=== PATIENT | female | born 1935 | race Hispanic/Latino ===

== ENCOUNTER 2017-08-16 03:42 | Emergency (ER) | payer OTHER, MEDICARE ==
[2017-08-16] MEDS ORDERED: PROCHLORPERAZINE EDISYLATE 10 MG/2 ML VIAL ONE (03:52)
[2017-08-16] MEDS ORDERED: SODIUM CHLORIDE 0.9% 1000ML 1,000 ML IV ONE (03:52)
[2017-08-16 04:10] LABS: BASOPHILS % (AUTO) 0.8 % (0.0-5.0); HEMATOCRIT 39.2 % (36-48); LYMPHOCYTES % (AUTO) 21.9 % (21.0-51.0); MEAN CORPUSCULAR HEMOGLOBIN 31.8 pg (27.0-33.0); MEAN CORPUSCULAR HGB CONC 34.6 g/dL (32.0-36.0); MONOCYTES % (AUTO) 6.7 % (3.0-13.0); NEUTROPHILS % (AUTO) 67.6 % (40.0-77.0); PLATELET COUNT (AUTO) 242 K/uL (130-400); RED BLOOD CELL COUNT(AUTO) 4.26 MIL/uL (4.00-5.50); RED CELL DISTRIBUTION WIDTH 13.3 % (11.0-15.5); WHITE BLOOD COUNT (AUTO) 8.1 K/uL (4.8-10.8)
[2017-08-16 04:20] LABS: CREATININE 0.9 mg/dL (0.5-1.5); POTASSIUM 3.6 mmol/L (3.5-5.1)
== END 2017-08-16 06:04 | disposition home or self-care (01) ==
LOC: EDH 03:42
DX: R42 Dizziness and giddiness (principal); R51 Headache; K21.9 Gastro-esophageal reflux disease without esophagitis
CPT/HCPCS: 36415; 70450; 80048; 84484; 85025; 93005; 96361; 96374; 99285; J0780; J7030

== ENCOUNTER 2018-05-04 10:18 | Emergency (ER) | payer OTHER, MEDICARE ==
[2018-05-04] MEDS ORDERED: ONDANSETRON HCL 4 MG/2 ML VIAL ONE (10:57)
[2018-05-04] MEDS ORDERED: MECLIZINE HCL 25 MG TABLET ONE ×2 (10:57→12:08)
[2018-05-04 11:01] LABS: APPEARANCE,URINE CLEAR (CLEAR); BILIRUBIN,URINE NEGATIVE (NEGATIVE); COLOR,URINE YELLOW (YELLOW); GLUCOSE, URINE (UA) NEGATIVE (NEGATIVE); KETONES,URINE NEGATIVE (NEGATIVE); LEUKOCYTE ESTERASE ,URINE TRACE (NEGATIVE); NITRATE,URINE NEGATIVE (NEGATIVE); OCCULT BLOOD,URINE NEGATIVE (NEGATIVE); PROTEIN,URINE NEGATIVE (NEGATIVE); UROBILINOGEN,URINE 0.2 mg/dL (0.2-1.0)
[2018-05-04 11:02] LABS: EOSINOPHILS % (AUTO) 1.5 % (0.0-8.0); LYMPHOCYTES % (AUTO) 15.5 % (21.0-51.0); MEAN CORPUSCULAR HEMOGLOBIN 30.6 pg (27.0-33.0); MEAN CORPUSCULAR HGB CONC 32.9 g/dL (32.0-36.0); MEAN CORPUSCULAR VOLUME 93.1 fL (79-99); MONOCYTES % (AUTO) 5.6 % (3.0-13.0); NEUTROPHILS % (AUTO) 76.4 % (40.0-77.0); PLATELET COUNT (AUTO) 212 K/uL (130-400); RED CELL DISTRIBUTION WIDTH 13.4 % (11.0-15.5)
[2018-05-04 11:10] LABS: BACTERIA,URINE None Seen /HPF (None Seen); RBC,URINE None Seen /HPF (0-1); SQUAMOUS EPITHELIAL CELL,UR Few /HPF (0-2); WBC,URINE 0-1 /HPF (0-1)
[2018-05-04 11:16] LABS: CREATININE 0.9 mg/dL (0.5-1.5)
[2018-05-04 11:19] LABS: INR 0.99 (0.85-1.15); PARTIAL THROMBOPLASTIN TIME 26.6 SEC (26.3-35.5); PROTHROMBIN TIME 10.4 SEC (9.6-11.6)
[2018-05-04 11:27] LABS: ALBUMIN 3.9 g/dL (3.5-5.0); BILIRUBIN,TOTAL 0.4 mg/dL (0.2-1.0); TOTAL PROTEIN, SERUM 7.4 g/dL (6.0-8.3)
== END 2018-05-04 13:54 | disposition home or self-care (01) ==
LOC: EDH 10:18
DX: H81.10 Benign paroxysmal vertigo, unspecified ear (principal); I10 Essential (primary) hypertension; K21.9 Gastro-esophageal reflux disease without esophagitis
CPT/HCPCS: 36415; 80053; 81001; 82550; 83874; 84484; 85025; 85610; 85730; 93005; 94761; 96374; 99285; J2405

== ENCOUNTER 2025-01-23 14:17 | Emergency (ER) | payer MEDICARE, OTHER ==
[~2025-01-23] VITALS: Ht 160 cm; Wt 53.1 kg
[~2025-01-23 14:17] MED LIST: DEXA6TAB7 PO; LEVO250S9 PO
[2025-01-23 16:04] LABS: IMMATURE GRANULOCYTE ABSOLUTE 0.06 K/uL (0-1); NUCLEATED RED BLOOD CELLS 0.0 % (0.0-0.19); PLATELET COUNT (AUTO) 373 K/uL (130-400); RED BLOOD CELL COUNT(AUTO) 4.12 MIL/uL (4.00-5.50); RED CELL DISTRIBUTION WIDTH 15.5 % (11.0-15.5); WHITE BLOOD COUNT (AUTO) 13.9 K/uL (4.8-10.8)
[2025-01-23 16:21] LABS: CREATININE 0.6 mg/dL (0.5-1.0); GLOMERULAR FILTR. RATE CALC 86.0 mL/min (>90); GLUCOSE,RANDOM 92.0 mg/dL (70-105); SODIUM SERUM 142.0 mmol/L (136-145); UREA NITROGEN, BLOOD 7.0 mg/dL (7-18)
--- NOTE | 2025-01-23 16:22 | HMCIMG ---
EXAM: CR Chest, 1 View. CLINICAL HISTORY: [facility] COMPARISON: None provided. FINDINGS: LUNGS: There is no mass, infiltrate, or acute pulmonary abnormality. PLEURAL SPACES: No pleural effusion or pneumothorax. MEDIASTINUM: The heart is mild to moderately enlarged. Moderate aortic arch calcific atherosclerosis. The mediastinal and hilar contours are unremarkable. BONES: No aggressive appearing osseous lesion seen. IMPRESSION: 1. No acute cardiopulmonary findings. 2. Mild to moderate cardiomegaly. 3. Moderate aortic arch atherosclerosis. /[place]
[2025-01-23 16:30] LABS: ASPARTATE AMINOTRANSFERASE 11.0 U/L (10-37); CREATINE KINASE, TOTAL 30.0 U/L (21-232); TOTAL PROTEIN, SERUM 7.0 g/dL (6.0-8.3)
[2025-01-23 16:45] VITALS: TEMP 97.9
[2025-01-23] MEDS: 0.9% NACL 500ML IV.SOLN 500 ML IV ONE (17:20)
--- NOTE | 2025-01-23 17:28 | HMCIMG ---
EXAM: CT Head Without IV contrast. CLINICAL HISTORY: gbw TECHNIQUE: Axial computed tomography images of the head/brain without intravenous contrast. COMPARISON: CT Head without contrast 08/15/2017 FINDINGS: BRAIN: No evidence of acute hemorrhage. No mass lesion. No CT evidence for acute territorial infarct. No midline shift or extra-axial collections. There is global atrophy and compensatory enlargement of the ventricles. Mild periventricular white matter abnormal hypoattenuation. Calcific atherosclerosis of the cavernous portions of the bilateral internal carotid arteries and distal vertebral arteries. VENTRICLES: No hydrocephalus. ORBITS: The orbits are unremarkable. SINUSES AND MASTOIDS: The paranasal sinuses and mastoid air cells are clear. BONES: No fracture. SOFT TISSUES: Unremarkable. IMPRESSION: 1. No acute intracranial findings. If there is high clinical concern for an acute ischemic cerebrovascular accident recommend MRI brain for further evaluation 2. Global atrophy with compensatory ventricular enlargement. Worsening compared with the prior exam 3. Chronic periventricular white matter changes. 4. Intracranial atherosclerosis. /[place]
[2025-01-23 18:40] LABS: APPEARANCE,URINE CLEAR (CLEAR); GLUCOSE, URINE (UA) NEGATIVE (NEGATIVE); LEUKOCYTE ESTERASE ,URINE 25 Leu/uL (NEGATIVE); NITRATE,URINE NEGATIVE (NEGATIVE); OCCULT BLOOD,URINE +- (TRACE) (NEGATIVE)
[2025-01-23 18:49] LABS: ADD UA MICROSCOPIC YES
--- NOTE | 2025-01-23 18:50 | ERN ---
ED Note History of Present Illness Stated Complaint: WEAKNESS Chief Complaint: Weakness Time Seen by MD: 14:36 Dictation: 89-year-old female presenting to the emergency department with generalized weakness and dizziness over the past few hours. Patient denies any chest pain shortness of breath or abdominal pain. 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 Past Medical History Past Medical History: Unable to Obtain Surgical History: Unknown Family History: DM, HTN Review of System Dictation Constitutional: Negative for fever,chills, and weight loss Eyes: Negative for injury, pain,redness, and discharge ENT: Negative for injury,pain or swelling Cardiovascular: Negative for chest pain, palpitations, and edema Respiratory: Negative for shortness of breath, cough, and wheezing, Abdomen/GI: Negative for abdominal pain, nausea, vomiting, diarrhea, and constipation Back: Negative for injury and pain : Negative for injury, bleeding and discharge MS/Extremity: Negative for injury and deformity Skin: Negative for rash, and discoloration Neuro: Per HPI Initial Vital Sign VS Vital Signs Date Time Temp Pulse Resp B/P (MAP) Pulse Ox O2 Delivery O2 Flow Rate FiO2 01/23/25 14:47 97 20 150/76 97 01/23/25 14:50 97.9 Room Air* 0 21 Physical Exam Dictation General: awake, alert, NAD Head/Face: Normocephalic, atraumatic Eyes: PERRL, EOMI, vision at baseline ENT: oral cavity clear, TMs clear, no signs of infection Neck: Trachea midline, supple, no nuchal rigidity Cardiovascular: RRR, normal S1/S2, No MRGs, no JVD Respiratory: CTAB, no respiratory distress, No rales or wheezes Abdomen: Soft, non-tender, non-distended, normal bowel sounds, no guarding or rebound. Skin: Warm, dry, normal turgor, no rash MS/Extremity: Pulses equal, no cyanosis, neurovascular intact, FROM Neuro: COAx4, GCS 15, strength 5/5, CN 2-12 intact, normal cerebellar exam, normal gait, Psych: Normal behavior, mood, and affect normal Results (Laboratory/Radiology) Laboratory/Radiology Laboratory Tests Test 01/23/25 15:39 01/23/25 18:25 White Blood Count 13.9 K/uL (4.8-10.8) H Red Blood Count 4.12 MIL/uL (4.00-5.50) Hemoglobin 11.3 g/dL (12.0-16.0) L Hematocrit 36.1 % (36-48) Mean Corpuscular Volume 87.6 fL (79-99) Mean Corpuscular Hemoglobin 27.4 pg (27.0-33.0) Mean Corpuscular Hemoglobin Concent 31.3 g/dL (32.0-36.0) L Red Cell Distribution Width 15.5 % (11.0-15.5) Platelet Count 373 K/uL (130-400) Mean Platelet Volume 9.6 fL (7.5-10.5) Immature Granulocyte % (Auto) 0.4 % (0-1) Neutrophils (%) (Auto) 80.8 % (40.0-77.0) H Lymphocytes (%) (Auto) 12.7 % (21.0-51.0) L Monocytes (%) (Auto) 5.0 % (3.0-13.0) Eosinophils (%) (Auto) 0.5 % (0.0-8.0) Basophils (%) (Auto) 0.6 % (0.0-5.0) Neutrophils # (Auto) 11.2 K/uL (1.8-7.7) H Lymphocytes # (Auto) 1.8 K/uL (1.0-4.8) Monocytes # (Auto) 0.7 K/uL (0.1-1.0) Eosinophils # (Auto) 0.07 K/uL (0.00-0.70) Basophils # (Auto) 0.08 K/uL (0.00-0.20) Absolute Immature Granulocyte (auto 0.06 K/uL (0-1) Nucleated Red Blood Cells 0.0 % (0.0-0.19) Sodium Level 142 mmol/L (136-145) Potassium Level 4.1 mmol/L (3.5-5.1) Chloride Level 104 mmol/L (101-111) Carbon Dioxide Level 32 mmol/L (21-32) Blood Urea Nitrogen 7 mg/dL (7-18) Creatinine 0.6 mg/dL (0.5-1.0) Glomerular Filtration Rate Calc 86 mL/min (>90) Random Glucose 92 mg/dL (70-105) Lactic Acid Level 1.4 mmol/L (0.8-2.5) Total Calcium 8.7 mg/dL (8.5-10.1) Total Bilirubin 0.5 mg/dL (0.2-1.0) Direct Bilirubin 0.2 mg/dL (0.0-0.3) Aspartate Amino Transf (AST/SGOT) 11 U/L (10-37) Alanine Aminotransferase (ALT/SGPT) 12 U/L (12-78) Alkaline Phosphatase 92 U/L (50-136) Total Creatine Kinase 30 U/L (21-232) # Troponin I High Sensitivity 29 ng/L (4-50) Total Protein 7.0 g/dL (6.0-8.3) Albumin 3.1 g/dL (3.5-5.0) L Urine Color COLORLESS (YELLOW) Urine Appearance CLEAR (CLEAR) Urine pH 7.5 (5.0-8.0) Urine Specific [place] 1.004 (1.001-1.031) Urine Protein NEGATIVE mg/dL (NEGATIVE) Urine Glucose (UA) NEGATIVE mg/dL (NEGATIVE) Urine Ketones NEGATIVE mg/dL (NEGATIVE) Urine Occult Blood +- (TRACE) (NEGATIVE) H Urine Nitrate NEGATIVE (NEGATIVE) Urine Bilirubin NEGATIVE mg/dL (NEGATIVE) Urine Urobilinogen 0.2 mg/dL (0.2-1.0) Urine Leukocyte Esterase 25 Mich[place]/uL (NEGATIVE) H Labs Reviewed?: Yes EKG: (+) NSR, (+) rhythm, (+) QRS, (+) nonspecific ST T wave chg ED Course ED Course Orders Procedure Category Date Status Time 12 Lead Ekg Tracing- EKG 01/23/25 Logged Technical 14:52 12 Lead Ekg Tracing- EKG 01/23/25 Logged Technical 14:55 Basic Metabolic Panel LAB 01/23/25 Complete 14:55 Blood Cult PHILLIP 01/23/25 In Process 14:55 Hepatic Function Panel LAB 8/8/25 Complete 14:55 Creatine Kinase, Total LAB 01/23/25 Complete 14:55 Cbc With Differential LAB 01/23/25 Complete 14:55 Lactic Acid LAB 01/23/25 Complete 14:55 Troponin I High LAB 01/23/25 Complete Sensitivity 14:55 Urinalysis Profile LAB 01/23/25 In Process 14:55 Chest 1vw RAD 01/23/25 Resulted 14:55 Ct Head/Brain W/O CT 01/23/25 Resulted Contrast 15:36 0.9% Nacl 500ml PHA 01/23/25 Complete Iv.Soln (Ns 500ml 16:00 Current Medications Medications (Trade) Dose Ordered Sig/Miguel[place] Route PRN Reason Start Time Stop Time Status Last Admin Dose Admin Sodium Chloride 500 ml @ 0 mls/hr ONCE ONCE IV 01/23/25 16:00 01/23/25 16:01 DC 01/23/25 17:20 Vital Signs Date Time Temp Pulse Resp B/P (MAP) Pulse Ox O2 Delivery O2 Flow Rate FiO2 01/23/25 16:45 97.9 83 20 161/91 99 Room Air* 0 21 01/23/25 14:50 97.9 97 20 156/78 99 Room Air* 0 21 01/23/25 14:47 97 20 150/76 97 Medical Decision Making MDM MDM: Differential diagnosis: Rationale: Tests considered and ordered secondary to shared decision making include: Previous outside records reviewed: Old ER visits. Risk of complication and/or morbidity or mortality of patient management: None Medications-Per medication reconciliation Need for hospitalization: Patient does not meet criteria for hospitalization. Need for emergency major/minor surgery: No There are no social concerns with this patient. Prescription drug management Prescriptions will include symptomatic care Patient's prior external medical records from other ER visits were reviewed by me as indicated. Prior testing and results from previous visits were reviewed. Prior tests were taken into account with medical decision making and resource utilization, independent historian/historians were used to obtain complete medical history. I independently interpreted the test that were performed, results were reviewed by me and considered findings on radiology if ordered. Medical management and examination interpretation discussions were had by me with other qualified healthcare professionals as indicated for the patient's care. 89-year-old female generalized weakness, stable exam negative cardiac workup and CT of the head, mild UTI, pt offered admission but wants to go home instead, Rx given DX & DISP Disposition: Discharge Departure Impression: Primary Impression: Weakness Additional Impression: UTI (urinary tract infection) Condition: Stable Scripts Cephalexin Monohydrate (Keflex) 500 Mg Cap 1 CAP PO BID for 5 Days, #10 CAP 0 Refills Prov: PATRIZIA GERMAIN MD 01/23/25 Referrals: BLANCHE BERNARDO MD (PCP) PATRIZIA GERMAIN MD Jan 23, 2025 18:50
[2025-01-23] MEDS ORDERED: CEPH500B PO (18:56)
[2025-01-23 19:01] VITALS: BP 153/87; PULSE 78; RESP 19; O2SAT 97
--- NOTE | 2025-01-23 21:27 | EKG ---
[facility] Test Date: 2025-01-23 Test Time: 14:57:57 Pat Name: INDY BUCIO Department: ED Room: Gender: F Search Consultant: [id number] Requested By: PATRIZIA GERMAIN Order Number: [id number] Reading MD: Ollie Brown Measurements Intervals [place] Rate: 95 P: 66 SC: 156 QRS: 25 QRSD: 76 T: 11 QT: 358 QTc: 449 Interpretive Statements Sinus rhythm Ventricular premature complex Probable left atrial enlargement Anteroseptal infarct, age indeterminate Compared to ECG 05/04/2018 10:39:17 Ventricular premature complex(es) now present Myocardial infarct finding now present Electronically Signed On 01-24-2025 19:49:14 CDT by Ollie Brown Please click the below link to view image of tracing.
== END 2025-01-23 19:32 | disposition home or self-care (01) ==
LOC: EDH 14:17
DX: R53.1 Weakness (principal); N39.0 Urinary tract infection, site not specified; Z79.52 Long term (current) use of systemic steroids
CPT/HCPCS: 36415; 70450; 71045; 80048; 80076; 81001; 82550; 83605; 84484; 85025; 87040; 87086; 93005; 99285